=== PATIENT | male | born 1970 | race Caucasian/White ===

== ENCOUNTER 2024-12-10 07:54 | Outpatient (CLI) | payer BC, SELFPAY ==
--- OUTSIDE RECORDS SUMMARY | 2024-12-10 07:57 | XMS_ITS | Clinical Summary ---
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 Gender Identity Not on file Sexual Orientation Not on file Last Filed Vital Signs Vital Sign Reading Time Taken Comments Blood Pressure 142/90 03/16/2016 3:59 PM CDT Pulse 72 03/16/2016 3:59 PM CDT Temperature - - Respiratory Rate - - Oxygen Saturation - - Inhaled Oxygen Concentration - - Weight 157.4 kg (347 lb) 03/16/2016 3:59 PM CDT Height 177.8 cm (5' 10) 03/16/2016 3:59 PM CDT Body Mass Index 49.79 03/16/2016 3:59 PM CDT Plan of Treatment Health Maintenance Due Date Last Done Comments Colorectal Cancer Screening Colonoscopy (10 Years) 1969 Annual Physical 02/16/1972 Hepatitis C 1987 Hepatitis B Vaccines (1 of 3 - 19+ 3-dose series) 02/16/1988 Pneumococcal Vaccine: 50+ Ye ars (1 of 1 - PCV) 2019 Zoster Vaccines (1 of 2) 2019 COVID-19 Vaccine ( - 2023-2 5 season) 2024 DTaP, Tdap and Td Vaccines ( 2 - Td or Tdap) 03/16/2026 03/16/2016 Meningococcal B Vaccine Aged Out No l onger eligible based on patient's age to complete this topic Meningococcal Vaccine Aged Out No ken cristiane eligible based on patient's age to complete this topic RSV Immunizations Under 20 Months Aged Out No longer eligible based on patient's age to complete this topic
--- OUTSIDE RECORDS SUMMARY | 2024-12-10 07:57 | XMS_ITS | Clinical Summary ---
Author Organization [facility] Address [address] [place] [address] Phone Care Team Providers Care Pre Wave Assembler Name Role Phone Radha Panchal APRN, EXECUTIVE SECRETARY SOCIAL WELFARE Primary Care Provider Jc Hope MD Unavailable [phone] Allergies Active Allergy Reactions Criticality Noted Date Comments Penicillins Unknown 04/18/2020 Medications diphenhydrAMINE (Benadryl Allergy) 25 MG Tablet Take 25 mg by mouth every 6 hours as needed. Active Active Problems Problem Noted Date Diagnosed Date Polycythemia 07/24/2024 Encounters Date Type Department Care Team Description 09/25/2024 11:45 AM CDT Telemedicine [facility] [address] [phone] Jc Hope MD Polycythemia (Primary Dx) 09/25/2024 Travel from Last 3 Months Family History Medical History Relation Name Comments Prostate Cancer Father Relation Name Status Comments Father Social History Tobacco Use Types Packs/Day Years Used Date Smoking Tobacco: Never Smokeless Tobacco: Current Chew Tobacco Cessation:Ready to Q uit: Not Asked; Counseling Given: Not Answered Alcohol Use Standard Drinks/Week Comments Yes 21 (1 standard drink = 0.6 oz pu re alcohol) Sex and Gender Information Value Date Recorded Sex Assigned at Not on file 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 Gender Identity Not on file Sexual Orientation Not on file Last Filed Vital Signs Vital Sign Reading Time Taken Comments Blood Pressure 160/90 08/25/2024 9:02 AM CDT Pulse 58 08/25/2024 9:02 AM CDT Temperature 36.6 C (97.8 F) 08/25/2024 9:02 AM CDT Respiratory Rate 18 08/25/2024 9:02 AM CDT Oxygen Saturation 96% 08/25/2024 9:02 AM CDT Inhaled Oxygen Concentration - - Weight 155.9 kg (343 lb 11.2 oz) 08/25/2024 9:02 AM CDT Height 175.3 cm (5' 9) 08/25/2024 9:02 AM CDT Body Mass Index 50.76 08/25/2024 9:02 AM CDT Plan of Treatment Upcoming Encounters Date Type Department Care Team (Late st Contact Info) Description 01/22/2025 11:45 AM CDT Office Visit [facility] [address] [phone] Jc Hope MD [address] [facility] [address] [place] [id number] Health Maintenance Due Date Last Done Comments Hepatitis C Virus (HCV) Screening 1970 TdaP Immunization 1969 Hepatitis B Immunization (1 of 3 - 19+ 3-dose series) 02/16/1988 Colonoscopy 2014 Colorectal Cancer Screening 2014 Cologuard 2019 Immunochemical Fecal Occult Blood 2019 Pneumococcal Immunization (5 0+ years) (1 of 1 - PCV) 2019 Zoster Immunization (1 of 2) 2019 SARS-COV-2 Immunization ( - season) 2024 05/05/2021, 08/23/2020, 08/01/2020 PSA Discussion 02/16/2024 Influenza Immunization (Seas on Ended) 2025 Respiratory Syncytial Virus (RSV) Immunization (Adult) (1 - 1-dose 75+ series) 02/16/2044 Human Papillomavirus (HPV) Immunization Aged Out No longer eligible b ased on patient's age to complete this topic Meningococcal Immunization (ACWY) Aged Out No longer eligible b ased on patient's age to complete this topic Rotavirus Immunization Aged Out No lo nger eligible based on patient's age to complete this topic Insurance [facility] Care Teams Pre Wave Assembler Relationship Specialty Start Date End Date Radha Panchal, WATERPROOFING SUPERVISOR, EXECUTIVE SECRETARY SOCIAL WELFARE [address] [place] [address] PCP - General Advanced Practice Nurse 07/10/24 Jc Hope MD [address] [place] [phone] Consulting Physician Oncology 07/10/24
--- NOTE | 2025-01-10 14:25 | P.SLEEP_ITS ---
Sleep Study Date of Study: 12/10/24 Ordering Provider: CARON Cunningham Interpreting Physician: Cheri Cardoza DO Sleep Study Type: Split Polysomnogram Height: 1.75 m Weight: 149.685 kg Body Mass Index: 48.7 Neck Circumference (inches): 20 [place]: 1 Reason for Sleep Study Previously diagnosed LAURA and is on CPAP. Polycythemia seen on labs and concerns for uncontrolled LAURA Sleep History The patient is a 54-year-old male that had a sleep study ordered by his primary care for evaluation sleep apnea. The patient occasionally awakens from sleep short of breath. He rarely awakens at night with heartburn, belching or cough. He occasionally snores and is occasionally loud enough that others complain. He occasionally has trouble sleeping when he has a cold. He rarely wakes up gasping for air throughout the night. He rarely has breathing problems at night observed by himself or others. He occasionally sweats excessively at night. He denies having heart palpitations or irregular heartbeats during the night. He rarely falls asleep during the day and never while driving. He denies sleep paralysis, cataplexy and hypnagogic/ hypnopompic hallucinations. He rarely has trouble at school or work due to sleepiness. He rarely has nightmares. He occasionally remembers his dreams. He occasionally has thoughts racing through his mind. He rarely feels sad, depressed or anxious. He denies having muscular tension. He rarely notices parts of his body jerk. He denies kicking during the night. He denies having crawling and aching feelings in his legs and denies having leg pain during the night. He denies grinding his teeth during sleep and denies awakening with morning jaw pain. He is rarely bothered by pain during the day and rarely awakened by pain during the night. He occasionally wakes up feeling stiff in the morning. He rarely wakes up with sore or achy muscles. He rarely wakes up with pain in the neck, spine and other joints. He goes to bed at 11:00 p.m. every night. It takes him 10-15 minutes to fall asleep. He does not typically wake up throughout the night. He wakes up at 7:00 a.m. on weekdays and at 5:30 a.m. on the weekends. He typically gets 7-8 hours of sleep per night. He will stay in bed for 15-20 minutes after waking up in the morning. He currently lives with his and child. He denies consuming any caffeinated beverages within 2 hours of bedtime. He denies engaging in physical exercise before bedtime. He denies reading before falling asleep. He will watch television before falling asleep. He denies taking naps in the afternoon or the evening. He consumes a caffeinated beverage once per week. He consumes 2 alcoholic beverages per day. He denies tobacco and recreational drug use. PMFSH Past Medical History Medical History LAURA (obstructive sleep apnea) Allergies Surgical History Surgical History History of tonsillectomy Family History Family History Father Malignant neoplasm of prostate Social History Social History Smoking status: Never smoker Tobacco type: cigars Alcohol intake: current Medications Home Medications ?Medication ?Instructions ?Recorded ?Confirmed ?Type diphenhydramine HCl 25 mg capsule 25 mg PO Q6H PRN 07/16/20 10/29/24 History (Benadryl) Sleep Procedure A full night split study using the [employer] multi-channel system recorded the standard physiologic parameters including EEG, EOG, submentalis EMG, anterior tibialis EMG, EKG, body position, nasal and oral airflow using nasal pressure sensor and thermistor.? Respiratory parameters of chest and abdominal movements were recorded with Respiratory Inductance Plethysmography belts. Oxygen saturation was recorded by pulse oximetry. Video monitoring was also performed. Sleep stages, periodic limb movements, and EEG arousals were scored in 30 second epochs according to the criteria of the AASM Scoring Manual. The Apnea-Hypopnea Index was calculated using CMS guidelines for definition of hypopnea with 4% O2 desaturations while scoring respiratory events. Sleep Architecture During the diagnostic portion of the study, the total recording time was 238.2 minutes. The total sleep time was 83.0 minutes. Sleep latency was 38.2 minutes.? REM sleep was not achieved during this portion of the study. Sleep Efficiency was 34.8%. The patient had 29 awakenings for an awakening index of 21.0. Wake after sleep onset time was 117.0 minutes. The patient spent 17.0 minutes, 20.5% of total sleep time in Stage N1. The patient spent 66.0 minutes, 79.5% in Stage N2. The patient spent 0.0 minutes, 0.0% in Stage N3. The patient spent 0.0 minutes, 0.0% in Stage REM sleep. At 01:29:36 AM the patient was placed on PAP treatment and was titrated at pressures ranging from 5 cm H20 up to 17 cm H20. During the treatment portion of the study, the total recording time was 327.5 minutes.? The total sleep time was 250.5 minutes. Sleep latency was 30.0 minutes. REM latency was 46.5 minutes. Sleep Efficiency was 76.5%. Wake after Sleep Onset time was 47.0 minutes. The patient spent 14.0 minutes, 5.6% of total sleep time in Stage N1. The patient spent 102.0 minutes, 40.7% in Stage N2. The patient spent 42.0 minutes, 16.8% in Stage N3. The patient spent 92.5 minutes, 36.9% in Stage REM. Respiratory Analysis During the diagnostic portion of the study, the patient had 32 hypopneas, 63 obstructive apneas and 1 mixed apnea for an overall Apnea Hypopnea Index of 69.4 events per hour. The REM Apnea Hypopnea Index was 0. The NREM Apnea Hypopnea Index was 69.4. The patient had a Central Apnea Hypopnea Index of 0. There was no evidence of Gael-Pollock Respirations. During the treatment portion of the study, the patient had 22 hypopneas, 5 obstructive apneas, 2 mixed apneas, and 17 central apneas for an overall Apnea Hypopnea Index of 11.0 events per hour. The REM Apnea Hypopnea Index was 13.0. The NREM Apnea Hypopnea Index was 9.9. The patient had a Central Apnea Hypopnea Index of 4.1. There was no evidence of Gael-Pollock Respirations. The patient was started on CPAP 5 cm H2O and titrated to CPAP 17 cm H2O due to obstructive/ central apneas and hypopneas. The patient was able to fall asleep starting on CPAP 6 cm H2O. The patient was able to achieve REM sleep starting on CPAP 9 cm H2O. The patient was able to achieve a residual AHI less than 5 with both NREM and REM sleep in the supine position on 13 cm H2O, 15 cm H2O and 17 cm H2O. On CPAP 13 cm H2O, the patient spent 54 minutes in NREM and 49 minutes in REM with 4 hypopneas, resulting in an AHI of 2.3. On CPAP 15 cm H2O, the patient spent 57 minutes in NREM and 6 minutes in REM with 3 hypopneas, resulting in an AHI of 2.9. On CPAP 17 cm H2O, the patient spent 21.5 minutes in NREM and 22 minutes in REM with 2 hypopneas, resulting in an AHI of 4.1. The patient had a sleep efficiency of 99.5% on 13 cm H2O, 88.1% on 15 cm H2O and 86.1% on 17 cm H2O. Arousals During the diagnostic portion of the study, there were a total of 118 arousals for an arousal index of 85.3.? There were 55 respiratory arousals for an index of 39.8. There were 0 periodic limb movement arousals for an index of 0.? There were 4 isolated limb movement arousals for an index of 2.9. There were 55 spontaneous arousals for an index of 39.8. During the treatment portion of the study, there were a total of 136 arousals for an index of 32.6.? There were 27 respiratory arousals for an index of 6.5. There were 10 periodic limb movement arousals for an index of 2.4.? There were 8 isolated limb movement arousals for an index of 1.9. There were 89 spontaneous arousals for an index of 21.3. Periodic Limb Movements During the diagnostic portion of the study, the patient had 7 isolated limb movements with an index of 5.1. The patient had 0 periodic limb movements with an index of 0. The patient had a total of 7 limb movements with a total limb m ovement index of 5.1. During the treatment portion of the study, the patient had 10 isolated limb movements with an index of 2.4. The patient had 17 periodic limb movements with an index of 4.1. The patient had a total of 27 limb movements with a total limb movement index of 6.5. Oximetry Data During the diagnostic portion of the study, the patient had an average oxygen saturation of 92.1% in wake with a minimum oxygen saturation of 82% and a maximum oxygen saturation of 99%. The patient had an average oxygen saturation of 92.4% in sleep with a minimum oxygen saturation of 88.0% and a maximum oxygen saturation of 97.0%. The patient had 66 oxygen desaturations resulting in an Oxygen Desaturation Index of 47.7. The patient spent 1.1 minutes, 0.5% of total sleep time with an oxygen saturation less than 88%. During the treatment portion of the study, the patient had an average oxygen saturation of 93.5% in wake with a minimum oxygen saturation of 82.0% and a maximum oxygen saturation of 98.0%. The patient had an average oxygen saturation of 92.5% in sleep with a minimum oxygen saturation of 83.0% and a maximum oxygen saturation of 96.0%. The patient had 57 oxygen desaturations resulting in an Oxygen Desaturation Index of 13.7. The patient spent 7.3 minutes, 2.2% of total sleep time with an oxygen saturation less than 88%. Snoring Profile Snoring was present in the baseline portion of the study. the snoring resolved once the patient was titrated to CPAP 11 cm H2O. Cardiac Profile The EKG lead showed normal sinus rhythm with multifocal PVCs, intermittent bigeminy/trigeminy and couplets. During the diagnostic portion of the study, the average pulse rate was 61.4 bpm.? The minimum pulse rate was 37.0 bpm. The maximum pulse rate was 113.0 bpm. During the treatment portion of the study, the average pulse rate was 56.7 bpm.? The minimum pulse rate was 38.0 bpm. The maximum pulse rate was 75.0 bpm. EEG Profile No signs of seizure activity seen. Assessment and Plan Assessment and Plan (1) LAURA (obstructive sleep apnea): Code(s): G47.33 - Obstructive sleep apnea (adult) (pediatric) Status: Acute Assessment and Plan: In the baseline portion of the study, the patient had an overall AHI of 69.4 with desaturation down to 88%. This is consistent with severe sleep apnea. The patient was started on CPAP 5 cm H2O and titrated to CPAP 17 cm H2O due to obstructive/ central apneas and hypopneas. The patient's sleep apnea resolved on multiple pressure settings with a high sleep efficiency. I recommend that the patient be prescribed CPAP 13 cm H2O, size medium Resmed AirFit P30i nasal pillows, CPAP filters/tubing and heated humidity. This should be used with all episodes of sleep.? Compliance should be reviewed within 31-90 days of starting therapy for usage greater than 4 hours per night greater than 70% of the nights. The patient should be asked about symptoms such as?excessive daytime sleepiness, quality of sleep, decreased nocturia, increased?mental functioning such as memory, mood, and concentration. Data The data obtained during this sleep study is adequate for interpretation. Certification This sleep study has been reviewed by a board certified sleep medicine physician.
== END 2024-12-11 07:15 | disposition home or self-care (01) ==
LOC: ANHCSM 07:55
PROVIDERS: PCP Internal Medicine; Visit Provider Clinical Nurse Specialist
DX: G47.33 Obstructive sleep apnea (adult) (pediatric) (principal)
CPT/HCPCS: 95811